=== PATIENT | male | born 1975 | race Caucasian/White ===

== ENCOUNTER 2018-05-29 07:24 | Day surgery (SDC) | payer OTHER ==
[~2018-05-29 07:24] MED LIST: INTESTINEX1 CA1 PO; TRAM1TAB98 PO
== END 2018-05-29 12:08 | disposition home or self-care (01) ==
LOC: AMB-ENDOS 07:24
DX: C18.8 Malignant neoplasm of overlapping sites of colon (principal)

== ENCOUNTER 2019-07-09 06:40 | Day surgery (SDC) | payer OTHER | END 2019-07-09 10:35 | disposition home or self-care (01) | LOC: AMB-ENDOS 06:40 | DX: C18.8 Malignant neoplasm of overlapping sites of colon (principal); K64.8 Other hemorrhoids ==

== ENCOUNTER 2020-09-22 08:20 | Day surgery (SDC) | payer OTHER | END 2020-09-22 13:15 | disposition home or self-care (01) | LOC: AMB-ENDOS 08:20 | PROVIDERS: ATTEND Surgery | DX: K62.89 Other specified diseases of anus and rectum (principal); Z20.822 Contact with and (suspected) exposure to COVID-19 ==